=== PATIENT | female | born 1970 | race Caucasian/White ===

== ENCOUNTER 2021-12-28 10:44 | Observation (INO) ==
[2021-12-28] MEDS ORDERED: ONDANSETRON 4 MG/2 ML VIAL IV ONE (11:11)
[2021-12-28] MEDS ORDERED: MORPHINE 2 MG/1 ML SYRINGE IV ONE (11:11)
[2021-12-28] MEDS ORDERED: SODIUM CHLORIDE 0.9% 1,000 ML IV STA (11:11)
[2021-12-28 12:05] LABS: Basophils % 0.1 % (0.0-0.8); Hematocrit 40.7 VOL% (35.7-47.0); Hemoglobin 13.6 GM/DL (12.0-16.0); Immature Granulocytes % 0.8 %; Immature Granulocytes Absolute 0.13 #; Lymphocytes % 6.4 % (21.3-54.2); Mean Corpuscular HGB Conc 33.4 GM/DL (32-36); Mean Platelet Volume 10.2 FL (9.6-12.0); Monocytes # 1.1 10*3/uL (0.11-0.8); Monocytes % 6.6 % (1.7-12.7); Neutrophils % 86.1 % (38.7-73.9); Platelet Count 171 T/CUMM (130-400); Red Blood Count 4.33 MC/CUMM (3.8-5.5); Red Cell Distribution Width 12.4 % (9.3-17.3); White Blood Count 16.1 T/CUMM (4-12)
[2021-12-28 12:27] LABS: Albumin 3.7 G/DL (3.4-5.0); Bilirubin,Total 1.4 MG/DL (0.20-1.00); Calcium 9.3 MG/DL (8.5-10.1); Osmolality,Calculated 272.8 MOS/KG (273-304); Total Protein 7.8 G/DL (6.4-8.2)
[2021-12-28] MEDS ORDERED: PIPERACILLIN/TAZOBACTAM 3,375 MG in SODIUM CHLORIDE 0.9% 100 ML IV STA (13:18)
[2021-12-28] MEDS ORDERED: ACETAMINOPHEN 325 MG TABLET PO PRN ×2 (13:37→17:59)
[2021-12-28] MEDS ORDERED: ONDANSETRON 4 MG/2 ML VIAL IV PRN ×3 (13:37→15:44)
[2021-12-28] MEDS ORDERED: MORPHINE 2 MG/1 ML SYRINGE IV PRN (13:37)
[2021-12-28] MEDS ORDERED: LACTATED RINGERS 1,000 ML IV SCH (14:00)
[2021-12-28] MEDS ORDERED: PIPERACILLIN/TAZOBACTAM 3,375 MG in SODIUM CHLORIDE 0.9% 100 ML IV SCH (14:00)
[2021-12-28 14:02] LABS: Bilirubin,Urine Negative (Negative); Blood, Urine Negative (Negative); Glucose,Urine (UA) Negative (Negative); Ketones,Urine 40 mg/dL (Negative); Mucus,Urine Occasional /LPF (Occasional); Nitrite,Urine Negative (Negative); Protein,Urine Negative (Negative); RBC,Urine <1 /HPF (0-4); Squamous Epithelial Cell,Urine Occasional /HPF (0-10); Urine Appearance Clear (Clear); Urine Color Yellow (Yellow); Urine Urobilinogen 0.2 eU/dL (<2.0); Urine pH 5.5 (4.5-8.0)
[2021-12-28] MEDS ORDERED: TISSUE ADHESIVE 1 EACH APPLICATOR TOP ONE ×2 (14:26→14:29)
[2021-12-28] MEDS ORDERED: LIDOCAINE 1%/EPI INJ 20 ML VIAL ONE ×2 (14:26→14:29)
[2021-12-28] MEDS ORDERED: BUPIVACAINE MPF 0.25% 30 ML VIAL ONE ×2 (14:26→14:29)
[2021-12-28] MEDS ORDERED: HYDROmorphone 1 MG/1 ML SYRINGE IV PRN ×3 (14:30→15:44)
[2021-12-28] MEDS ORDERED: KETOROLAC 30 MG/1 ML VIAL IV PRN (14:35)
[2021-12-28] MEDS ORDERED: fentaNYL 100 MCG/2 ML VIAL ONE (15:02)
[2021-12-28] MEDS ORDERED: PHENYLEPHRINE 1 MG/10 ML SYRINGE IV ONE (15:10)
[2021-12-28] MEDS ORDERED: GLYCOPYRROLATE 0.4 MG/2 ML VIAL ONE (15:29)
[2021-12-28] MEDS ORDERED: NEOSTIGMINE 10 MG/10 ML VIAL ONE (15:29)
[2021-12-28] MEDS ORDERED: LIDOCAINE 2% 5 ML VIAL ONE (15:31)
[2021-12-28] MEDS ORDERED: ROCURONIUM 50 MG/5 ML VIAL IV ONE (15:31)
[2021-12-28] MEDS ORDERED: SEVOFLURANE 1 UNIT/15 MINUTE INH ONE (15:31)
[2021-12-28] MEDS ORDERED: LACTATED RINGERS 1,000 ML IV ONE (15:31)
[2021-12-28] MEDS ORDERED: propofoL 200 MG/20 ML VIAL IV ONE (15:31)
[2021-12-28] MEDS ORDERED: PROMETHAZINE 25 MG/1 ML VIAL IM PRN (15:44)
[2021-12-28 16:12] LABS: Basophils # 0.1 10*3/uL (0.0-0.2); Basophils % 0.5 % (0.0-0.8); Eosinophils # 0.1 10*3/uL (0.0-0.87); Eosinophils % 0.3 % (0.00-10.9); Hematocrit 37.5 VOL% (35.7-47.0); Hemoglobin 12.6 GM/DL (12.0-16.0); Immature Granulocytes % 0.6 %; Immature Granulocytes Absolute 0.09 #; Lymphocytes # 1.5 10*3/uL (1.4-4.0); Lymphocytes % 9.3 % (21.3-54.2); Mean Corpuscular HGB Conc 33.6 GM/DL (32-36); Mean Corpuscular Volume 92.4 FL (87-102); Mean Platelet Volume 10.6 FL (9.6-12.0); Monocytes # 0.9 10*3/uL (0.11-0.8); Monocytes % 5.5 % (1.7-12.7); Neutrophils % 83.8 % (38.7-73.9); Platelet Count 168 T/CUMM (130-400); Red Blood Count 4.06 MC/CUMM (3.8-5.5); Red Cell Distribution Width 12.6 % (9.3-17.3); White Blood Count 16.1 T/CUMM (4-12)
[2021-12-28 16:30] LABS: Calcium 6.7 MG/DL (8.5-10.1); Osmolality,Calculated 267.2 MOS/KG (273-304)
[2021-12-28] MEDS ORDERED: KETOROLAC 15 MG/1 ML VIAL IV SCH (17:00)
[2021-12-28] MEDS: LACTATED RINGERS 1,000 ML IV SCH (17:50)
[2021-12-29] MEDS: KETOROLAC 30 MG/1 ML VIAL IV SCH ×2 (01:02→07:26)
[2021-12-29] MEDS: LACTATED RINGERS 1,000 ML IV SCH (01:03)
[2021-12-29 05:26] LABS: Basophils % 0.1 % (0.0-0.8); Eosinophils % 0.1 % (0.00-10.9); Hematocrit 33.3 VOL% (35.7-47.0); Hemoglobin 11.1 GM/DL (12.0-16.0); Immature Granulocytes % 0.8 %; Immature Granulocytes Absolute 0.12 #; Lymphocytes % 13.2 % (21.3-54.2); Mean Corpuscular HGB Conc 33.3 GM/DL (32-36); Mean Corpuscular Volume 93.8 FL (87-102); Mean Platelet Volume 11.1 FL (9.6-12.0); Monocytes # 0.9 10*3/uL (0.11-0.8); Monocytes % 6.1 % (1.7-12.7); Neutrophils % 79.7 % (38.7-73.9); Platelet Count 145 T/CUMM (130-400); Red Blood Count 3.55 MC/CUMM (3.8-5.5); Red Cell Distribution Width 12.7 % (9.3-17.3); White Blood Count 15.1 T/CUMM (4-12)
[2021-12-29 05:41] LABS: Calcium 8.5 MG/DL (8.5-10.1); Osmolality,Calculated 278.4 MOS/KG (273-304); Potassium 3.7 MMOL/L (3.5-5.1)
[2021-12-29] MEDS ORDERED: PANTOPRAZOLE 40 MG VIAL IV SCH (06:30)
[2021-12-29] MEDS ORDERED: PIPERACILLIN/TAZOBACTAM 3,375 MG in SODIUM CHLORIDE 0.9% 100 ML IV SCH (07:00)
[2021-12-29] MEDS ORDERED: ENOXAPARIN 40 MG/0.4 ML SYRINGE SUBCUT SCH (09:00)
[2021-12-29] MEDS ORDERED: PANTOPRAZOLE 40 MG TABLET PO SCH (09:00)
[2021-12-29] MEDS ORDERED: CEFUROXIME 500 MG TABLET PO SCH (09:00)
[2021-12-29 12:55] VITALS: BP 106/46
== END 2021-12-29 15:46 | disposition home or self-care (01) ==
LOC: N.ED 10:44 → N.EDINP 10:44 → N.5E 14:37
PROVIDERS: ADMIT Surgery; ATTEND Surgery